=== PATIENT | female | born 1995 | race Caucasian/White ===

== ENCOUNTER 2020-11-30 19:58 | Emergency (ER) | payer BC, OTHER ==
--- NOTE | 2020-11-30 20:24 | PHYS DOC ---
Adult General Chief Complaint Chief Complaint: MECHANICAL FALL HPI HPI This is a pleasant 25-year-old female G1, P0 at 26 weeks gestational age present to the emergency department following a ground-level mechanical fall today prior to arrival to the ER. Patient states that she fell forward on her abdomen. She had immediately cramping discomfort lasting 15 minutes or so. Patient denies any bleeding, fluid leakage. Does report movement. No other symptoms. Denies any pain lower abdomen while in the ER. She believes her pain has subsided. Denies any fever, chills, nausea or vomiting. Review of Systems Review of Systems All other systems were reviewed and found to be within normal limits, except as documented in this note. Physical Exam Physical Exam Constitutional: Well developed, well nourished, no acute distress, non-toxic appearance. [] HENT: Normocephalic, atraumatic, bilateral external ears normal, oropharynx moist, no oral exudates, nose normal. [] Eyes: PERRLA, EOMI, conjunctiva normal, no discharge. [] Neck: Normal range of motion, no tenderness, supple, no stridor. [] Cardiovascular:Heart rate regular rhythm, no murmur [] Lungs & Thorax: Bilateral breath sounds clear to auscultation [] Abdomen: Gravid abdomen. Bowel sounds normal, soft, no tenderness, no masses, no pulsatile masses. [] Skin: Warm, dry, no erythema, no rash. [] Back: No tenderness, no CVA tenderness. [] Extremities: No tenderness, no cyanosis, no clubbing, ROM intact, no edema. [] Neurologic: Alert and oriented X 3, normal motor function, normal sensory function, no focal deficits noted. [] Psychologic: Affect normal, judgement normal, mood normal. [] EKG EKG [] Radiology/Procedures Radiology/Procedures [] Heart Score C/O Chest Pain: N/A Risk Factors: Risk Factors: DM, Current or recent (<one month) smoker, HTN, HLP, family history of CAD, obesity. Risk Scores: Risk Factors: DM, Current or recent (<one month) smoker, HTN, HLP, family history of CAD, obesity. Course & Med Decision Making Course & Med Decision Making Laboratory Tests Test 11/30/20 21:44 Urine Collection Type Unknown Urine Color Yellow Urine Clarity Clear Urine pH 6.0 Urine Specific [place] 1.015 Urine Protein Neg Urine Glucose (UA) Neg mg/dL Urine Ketones (Stick) Neg mg/dL Urine Blood Trace Urine Nitrite Neg Urine Bilirubin Neg Urine Urobilinogen Dipstick 0.2 mg/dL Urine Leukocyte Esterase Neg Urine RBC 0 /HPF Urine WBC Rare /HPF Urine Squamous Epithelial Cells Occ /LPF Urine Bacteria 0 /HPF Signed PATIENT: RAJAT ALFONSO ACCOUNT: [id number] : 1995 LOCATION: ER AGE: 25 SEX: F EXAM STATUS: REG ER ORD. PHYSICIAN: YARED SPENCER MD REASON: Status post mechanical fall, 26 weeks of gestational age PROCEDURE: OB LIMITED EXAM: US OB Limited CLINICAL HISTORY: Reason: Status post mechanical fall, 26 weeks of gestational age / Spl. Instructions: / History: . COMPARISON: None available. TECHNIQUE: Limited transabdominal ultrasound of the uterus was performed. FINDINGS: Within the uterus there is a single live intrauterine gestation with heart rate measured at 143 bpm. Fetus is in cephalic position. measurements as follows: BPD: 7.1 cm corresponding to 27 weeks 6 days Head circumference: 24.4 cm corresponding to 26 weeks 3 days Abdominal circumference: 22.9 cm corresponding to 27 weeks 2 days Femur length: 4.7 cm corresponding to 25 weeks 4 days MARK is visually normal. Placenta is anterior and appears normal. IMPRESSION: Single live intrauterine gestation with measurements as described above. Electronically signed by: Hans Santos MD (11/30/2020 9:51 PM) [facility] Patient was evaluated in the emergency department following a ground-level fall. She is 26 weeks gestational age. Patient had suprapubic, lower abdominal pain which is cramping in nature. This lasted about 15 to 20 minutes or so. Patient did not have any other symptoms. Denies any urinary symptoms. It was felt the patient need ultrasound OB to rule out any abnormality. OB ultrasound completely unremarkable. Urine study unremarkable. It was felt the patient could be discharged in safe condition. Close follow-up with OB encouraged. Dragon Disclaimer Dragon Disclaimer This electronic medical record was generated, in whole or in part, using a voice recognition dictation system. Departure Departure: Impression: Primary Impression: Status post fall Disposition: 01 HOME / SELF CARE / HOMELESS Condition: GOOD Additional Instructions: He had a ground-level fall which is mechanical in nature. He had injury to your lower abdomen. 26 weeks of gestational age. Transvaginal ultrasound negative for any abnormality. Urine study unremarkable. Follow-up with primary care provider as needed. Otherwise, keep your appointment with your OB as scheduled. YARED SPENCER MD Nov 30, 2020 20:24
--- NOTE | 2020-11-30 21:54 | RAD ---
EXAM: US OB Limited CLINICAL HISTORY: Reason: Status post mechanical fall, 26 weeks of gestational age / Spl. Instruction s: / History: . COMPARISON: None available. TECHNIQUE: Limited transabdominal ultrasound of the uterus was performed. FINDINGS: Within the uterus there is a single live intrauterine gestation with heart rate measured at 143 bpm. Fetus is in cephalic position. measurements as follows: BPD: 7.1 cm corresponding to 27 weeks 6 days Head circumference: 24.4 cm corresponding to 26 weeks 3 days Abdominal circumference: 22.9 cm corresponding to 27 weeks 2 days Femur length: 4.7 cm corresponding to 25 weeks 4 days MARK is visually normal. Placenta is anterior and appears normal. IMPRESSION: Single live intrauterine gestation with measurements as described above. Electronically signed by: Hans Santos MD (11/30/2020 9:51 PM) [facility]
[2020-11-30 23:00] LABS: BACTERIA,URINE 0 /HPF (0-FEW); BILIRUBIN,URINE NEG (NEG); CLARITY,URINE CLEAR; COLOR,URINE YELLOW; GLUCOSE,URINE NEG (NEG); NITRITE,URINE NEG (NEG); RBC,URINE 0 /HPF (0-2); SQUAMOUS EPITHELIAL CELL,UR OCC /LPF; UROBILINOGEN,URINE 0.2 mg/dL (0.2 mg/dL); WBC,URINE RARE /HPF (0-4)
== END 2020-11-30 22:48 | disposition home or self-care (01) ==
LOC: ER 19:58
DX: O26.892 Other specified pregnancy related conditions, second trimester (principal); R10.30 Lower abdominal pain, unspecified; Z3A.26 26 weeks gestation of pregnancy
CPT/HCPCS: 76815; 81001; 99284-25